=== PATIENT | male | born 1945 | race Caucasian/White ===

== ENCOUNTER 2016-09-13 09:51 | Observation (INO) | payer MEDICARE, BC ==
[2016-09-13 10:37] LABS: ABSOLUTE BASOPHILS # (AUTO) 0.1 10^3/uL (0.0-0.2); ABSOLUTE EOSINOPHILS # (AUTO) 0.2 10^3/uL (0.0-0.6); ABSOLUTE MONOCYTES (AUTO) 0.9 10^3/uL (0.1-1.4); BASOPHILS % (AUTO) 0.8 % (0-2); EOSINOPHILS % (AUTO) 2.9 % (0-6); HEMATOCRIT 51.3 % (37.9-51.0); HEMOGLOBIN 17.7 g/dL (13.5-17.0); HGB HCT DIFFERENCE 1.8; LYMPHOCYTES % (AUTO) 12.2 % (13-45); MEAN CORPUSCULAR HEMOGLOBIN 34.3 pg (27.0-33.4); MEAN CORPUSCULAR HGB CONC 34.5 g/dL (32.0-36.0); MEAN CORPUSCULAR VOLUME 100 fl (80-97); MONOCYTES % (AUTO) 10.8 % (3-13); RED BLOOD COUNT 5.15 10^6/uL (4.35-5.55); RED CELL DISTRIBUTION WIDTH 13.5 % (11.5-14.0); SEGMENTED NEUTROPHILS % (AUTO) 73.3 % (42-78); WHITE BLOOD COUNT 8.2 10^3/uL (4.0-10.5)
[2016-09-13 10:40] LABS: PROTHROMBIN TIME 13.2 SEC (11.4-15.4)
[2016-09-13 10:48] LABS: ALANINE AMINOTRANSFERASE 73 U/L (21-72); ALBUMIN 4.8 g/dL (3.5-5.0); ALKALINE PHOSPHATASE 75 U/L (38-126); ANION GAP 12 (5-19); ASPARTATE AMINO TRANSFERASE 52 U/L (17-59); BILIRUBIN,DIRECT 0.4 mg/dL (0.0-0.4); BILIRUBIN,TOTAL 0.6 mg/dL (0.2-1.3); BLOOD UREA NITROGEN 19 mg/dL (7-20); CALCIUM 9.8 mg/dL (8.4-10.2); CARBON DIOXIDE 27 mmol/L (22-30); CHLORIDE 101 mmol/L (98-107); CREATINE KINASE 100 U/L (55-170); CREATININE RESULT 0.87 mg/dL (0.52-1.25); GLUCOSE 119 mg/dL (75-110); POTASSIUM 5.7 mmol/L (3.6-5.0); SODIUM 140.2 mmol/L (137-145)
[2016-09-13 10:54] LABS: ALCOHOL < 10 mg/dL (NONE DETECTED)
[2016-09-13 10:58] LABS: CREATINE KINASE MB 1.94 ng/mL (<4.55); TROPONIN I 0.012 ng/mL
--- NOTE | 2016-09-13 11:11 | ER Document Report ---
ED Dizziness/Weakness - General Mode of Arrival: Medic Information source: Patient - HPI Patient complains to provider of: Weakness Associated symptoms: Other - See above <MEGAN TORRES - Last Filed: 09/13/16 12:34> <HELEN MORENO - Last Filed: 09/13/16 19:17> - General Chief Complaint: Weakness Stated Complaint: GENERALIZED WEAKNESS Time Seen by Provider: 09/13/16 10:26 Notes: Patient is a 71 year old male, with a past medical history including hypertension, who presents to the emergency department complaining of weakness onset this morning. Patient also complains of diaphoresis, shaking, nausea, dizziness, bloating, headache, and excessive belching. Patient states that he is feeling better now but is still nauseated and has a headache. Patient reports he has been weaning off of Metoprolol recently and this morning his blood pressure was 228/124 which is higher than it has been. Patient states he did take a tablet of Metoprolol at 0800 this morning. Patient denies abdominal pain, chest pain and blurry vision. PCP: Dr. Guevara (MEGAN TORRES) - Related Data Allergies/Adverse Reactions: Penicillins Allergy (Mild, Verified 03/27/13 10:08) Home Medications: Current Home Medications Aspirin [Ecotrin 81 mg EC Tablet] 81 mg PO DAILY 09/13/16 [History] Losartan/Hydrochlorothiazide [Hyzaar 100-25 Tablet] 1 each PO DAILY 09/13/16 [ History] Metoprolol Tartrate [Lopressor 100 mg Tablet] 100 mg PO Q12 09/13/16 [History] Past Medical History - General Information source: Patient - Social History Smoking Status: Never Smoker Chew tobacco use (# tins/day): No Frequency of alcohol use: Social Drug Abuse: None Family History: Reviewed & Not Pertinent, Hypertension - Past Medical History Cardiac Medical History: Reports: Hx Hypertension GI Medical History: Reports: Hx Gastroesophageal Reflux Disease Past Surgical History: Reports: Hx Orthopedic Surgery - berny shoulder, Hx Tonsillectomy <MEGAN TORRES - Last Filed: 09/13/16 12:34> Review of Systems - Review of Systems Constitutional: See HPI, Diaphoresis, Weakness EENT: denies: Blurred vision Cardiovascular: See HPI, Dizziness. denies: Chest pain Respiratory: No symptoms reported Gastrointestinal: See HPI, Nausea, Other - bloating and belching. denies: Abdominal pain Genitourinary: No symptoms reported Male Genitourinary: No symptoms reported Musculoskeletal: No symptoms reported Skin: No symptoms reported Hematologic/Lymphatic: No symptoms reported Neurological/Psychological: See HPI, Headaches, Tremor -: Yes All other systems reviewed and negative <MEGAN TORRES - Last Filed: 09/13/16 12:34> Physical Exam - Vital signs Interpretation: Hypertensive - General General appearance: Appears well, Alert - HEENT Head: Normocephalic, Atraumatic - Respiratory Respiratory status: No respiratory distress Chest status: Nontender Breath sounds: Normal Chest palpation: Normal - Cardiovascular Rhythm: Regular Heart sounds: Normal auscultation Murmur: No - Abdominal Distension: Distended Bowel sounds: Normal Tenderness: Nontender Organomegaly: No organomegaly - Extremities General upper extremity: Normal inspection General lower extremity: Normal inspection - Neurological Neuro grossly intact: Yes Cognition: Normal Orientation: AAOx4 [place] Coma Scale Eye Opening: Spontaneous [place] Coma Scale Verbal: Oriented [place] Coma Scale Motor: Obeys Commands [place] Coma Scale Total: 15 Speech: Normal - Psychological Associated symptoms: Normal affect, Normal mood - Skin Skin Temperature: Warm Skin Moisture: Dry Skin Color: Normal <MEGAN TORRES - Last Filed: 09/13/16 12:34> - Vital signs Interpretation: Normal - General General appearance: Appears well, Alert - HEENT Head: Normocephalic, Atraumatic Eyes: Normal Pupils: PERRL - Respiratory Respiratory status: No respiratory distress Chest status: Nontender Breath sounds: Normal Chest palpation: Normal - Cardiovascular Rhythm: Regular Heart sounds: Normal auscultation Murmur: No - Abdominal Inspection: Normal Distension: No distension Bowel sounds: Normal Tenderness: Nontender Organomegaly: No organomegaly - Back Back: Normal, Nontender - Extremities General upper extremity: Normal inspection, Nontender, Normal color, Normal ROM , Normal temperature General lower extremity: Normal inspection, Nontender, Normal color, Normal ROM , Normal temperature, Normal weight bearing. No: Nichol's sign - Neurological Neuro grossly intact: Yes Cognition: Normal Orientation: AAOx4 [place] Coma Scale Eye Opening: Spontaneous [place] Coma Scale Verbal: Oriented [place] Coma Scale Motor: Obeys Commands [place] Coma Scale Total: 15 Speech: Normal Motor strength normal: LUE, RUE, LLE, RLE Sensory: Normal - Psychological Associated symptoms: Normal affect, Normal mood - Skin Skin Temperature: Warm Skin Moisture: Dry Skin Color: Normal <HELEN MORENO - Last Filed: 09/13/16 19:17> - Vital signs Vitals: Resp Pulse Ox 16 95 09/13/16 10:05 09/13/16 10:05 Course - Laboratory Result Diagrams: 09/13/16 10:00 09/13/16 10:00 - Consults Dr. Han Time consulted: 12:13 - TOld to admit to [facility] Dr. Villar Time consulted: 12:19 <MEGAN TORRES - Last Filed: 09/13/16 12:34> - Laboratory Result Diagrams: 09/13/16 10:00 09/13/16 15:09 <HELEN MORENO - Last Filed: 09/13/16 19:17> - Re-evaluation Re-evalutation: 09/13/16 Patient is a 71-year-old male who comes in with vague complaints including diaphoresis, nausea. Patient was hypertensive here in the emergency department. He is taking metoprolol at home. Patient required IV hydralazine. He was still not feeling well and was admitted to the hospitalist service for further evaluation. Stable at time of admission. Understands and agrees with plan. (HELEN MORENO) - Vital Signs Vital signs: Temp Pulse Resp BP Pulse Ox 98.1 F 10 L 147/91 H 94 09/13/16 16:45 09/13/16 16:30 09/13/16 16:30 09/13/16 16:30 - Laboratory Laboratory results interpreted by me: 09/13/16 09/13/16 09/13/16 10:00 10:00 10:50 Hgb 17.7 H Hct 51.3 H MCV 100 H MCH 34.3 H Lymphocytes % 12.2 L Potassium 5.7 H Glucose 119 H POC Glucose ALT 73 H Urine Protein 30 H Urine Ascorbic Acid 20 H 09/13/16 11:07 Hgb Hct MCV MCH Lymphocytes % Potassium Glucose POC Glucose 126 H ALT Urine Protein Urine Ascorbic Acid - Consults Dr. Villar Reason for consultation: 09/13/16 12:19 Attempting contacting [facility] and her phone is not working 09/13/16 12:36 Will accept patient (MEGAN TORRES) Discharge <MEGAN TORRES - Last Filed: 09/13/16 12:34> - Discharge Admitting Provider: Hospitalist - [facility] Unit Admitted: Telemetry <HELEN MORENO - Last Filed: 09/13/16 19:17> - Discharge Clinical Impression: Weakness, Hypertensive urgency Condition: Stable Disposition: HOME, SELF-CARE Scribe Attestation: 09/13/16 19:17 I personally performed the services described in the documentation, reviewed and edited the documentation which was dictated to the scribe in my presence, and it accurately records my words and actions. (HELEN MORENO) Scribe Documentation - Scribe Written by Scrimane:: tee Hernandez, 09/16/16, 1119 acting as scribe for :: Yadira <MEGAN TORRES - Last Filed: 09/13/16 12:34>
[2016-09-13 11:18] LABS: APPEARANCE,URINE CLEAR; BILIRUBIN,URINE NEGATIVE (NEGATIVE); GLUCOSE, URINE NEGATIVE (NEGATIVE); KETONES,URINE NEGATIVE (NEGATIVE); LEUKOCYTE ESTERASE,URINE NEGATIVE (NEGATIVE); NITRITE,URINE NEGATIVE (NEGATIVE); PROTEIN,URINE 30 mg/dL (NEGATIVE); URINE SPECIFIC GRAVITY 1.011; UROBILINOGEN,URINE NEGATIVE mg/dL (<2.0)
--- NOTE | 2016-09-13 11:32 | RADIOLOGY REPORT (SQ) ---
EXAM DESCRIPTION: CHEST PA/LAT COMPLETED DATE/TIME: 09/13/2016 11:21 am REASON FOR STUDY: AMS COMPARISON: None. EXAM PARAMETERS: NUMBER OF VIEWS: two views TECHNIQUE: Digital Frontal and Lateral radiographic views of the chest acquired. RADIATION DOSE: NA LIMITATIONS: none FINDINGS: LUNGS AND PLEURA: No opacities, masses or pneumothorax. No pleural effusion. MEDIASTINUM AND HILAR STRUCTURES: No masses or contour abnormalities. HEART AND VASCULAR STRUCTURES: Heart normal size. No evidence for failure. BONES: No acute findings. HARDWARE: None in the chest. OTHER: No other significant finding. IMPRESSION: NO SIGNIFICANT RADIOGRAPHIC FINDING IN THE CHEST. TECHNICAL DOCUMENTATION: JOB ID: [id number] [employer]- All Rights Reserved
[2016-09-13] MEDS ORDERED: ONDANSETRON HCL INJ/PF 4 MG/2 ML SDV IV ONE (11:52)
--- NOTE | 2016-09-13 12:23 | RADIOLOGY REPORT (SQ) ---
EXAM DESCRIPTION: KUB/ABDOMEN (SINGLE VIEW) COMPLETED DATE/TIME: 09/13/2016 11:44 am REASON FOR STUDY: distension COMPARISON: None. NUMBER OF VIEWS: One view. TECHNIQUE: Supine radiographic image of the abdomen acquired. LIMITATIONS: None. FINDINGS: BOWEL GAS PATTERN: There is some mild gaseous distension of colon. No dilated small bowel loops are identified. CALCIFICATIONS: No suspicious calcifications. SOFT TISSUES: No gross mass or suggestion of organomegaly. HARDWARE: None in the abdomen. BONES: No acute fracture. No worrisome bone lesions. OTHER: No other significant finding. IMPRESSION: There is some mild gas distention of colon. No dilated small bowel loops are identified . Other findings as noted above TECHNICAL DOCUMENTATION: JOB ID: [id number] [employer]- All Rights Reserved
[2016-09-13] MEDS ORDERED: HYDRALAZINE HCL INJ/PF 20 MG/1 ML SDV IV ONE (12:34)
[2016-09-13] MEDS ORDERED: ONDANSETRON HCL INJ/PF 4 MG/2 ML SDV IV PRN (13:14)
[2016-09-13] MEDS ORDERED: ACETAMINOPHEN 325 MG TABLET PO PRN (13:14)
[2016-09-13] MEDS ORDERED: ZOLPIDEM TARTRATE 5 MG TABLET PO PRN (13:14)
[2016-09-13] MEDS ORDERED: DEXTROSE 50%-WATER 25 GM/50 ML DISP.SYRIN IV ONE (13:21)
[2016-09-13] MEDS ORDERED: INSULIN REG, HUMAN 100 UNIT/ML 3 ML VIAL (PYX) IV ONE (13:21)
[2016-09-13] MEDS ORDERED: HYDRALAZINE HCL INJ/PF 20 MG/1 ML SDV IV PRN (13:24)
[2016-09-13] MEDS ORDERED: METOPROLOL TARTRATE 50 MG TABLET PO ONE (14:00)
--- NOTE | 2016-09-13 15:30 | PDOC H&P ---
History of Present Illness Admission Date/PCP: 09/13/16 13:14 NATIVIDAD DUENAS MD Patient complains of: Generalized weakness , elevated blood pressure and nausea History of Present Illness: JASMINE HUMPHREY is a 71 year old male, with a past medical history including hypertension, who presents to the emergency department complaining of weakness onset this morning. Patient also complains of diaphoresis, shaking, nausea, dizziness, bloating, headache, and excessive belching. Patient states that he is feeling better now but is still nauseated and has a headache. Patient reports he has been weaning off of Metoprolol recently and this morning his blood pressure was 228/124 which is higher than it has been. Patient states he did take a tablet of Metoprolol at 0800 this morning. Patient denies abdominal pain, chest pain and blurry vision. He presented to his primary care providers office, Dr. Mateus Morgan. Who referred him to the ED for further evaluation. Past Medical History Cardiac Medical History: Reports: Hyperlipidema, Hypertension Pulmonary Medical History: Reports: None EENT Medical History: Reports: None Neurological Medical History: Reports: None Endocrine Medical History: Reports: None Renal/ Medical History: Reports: None Malignancy Medical History: Reports: None GI Medical History: Reports: Gastroesophageal Reflux Disease, Other - Godinez's esophagus Musculoskeltal Medical History: Reports: None Skin Medical History: Reports: None Psychiatric Medical History: Reports: Depression Traumatic Medical History: Reports: None Hematology: Reports: None Infectious Medical History: Reports: None Past Surgical History Past Surgical History: Reports: Orthopedic Surgery - berny shoulder, Tonsillectomy Social History Information Source: Patient Lives with: Spouse/Significant other Smoking Status: Never Smoker Frequency of Alcohol Use: Social - daily 2-3 cocktails Hx Recreational Drug Use: No Drugs: None Hx Prescription Drug Abuse: No - Advance Directive Resuscitation Status: Full Code Surrogate healthcare decision maker:: , Jyoti Family History Family History: Hypertension Parental Family History Reviewed: Yes Children Family History Reviewed: Yes Sibling(s) Family History Reviewed.: Yes Medication/Allergy Home Medications: Aspirin [Ecotrin 81 mg EC Tablet] 81 mg PO DAILY 09/13/16 Losartan/Hydrochlorothiazide [Hyzaar 100-25 Tablet] 1 each PO DAILY 09/13/16 Metoprolol Tartrate [Lopressor 100 mg Tablet] 100 mg PO Q12 09/13/16 Allergies/Adverse Reactions: Penicillins Allergy (Mild, Verified 03/27/13 10:08) Review of Systems Constitutional: PRESENT: weakness Eyes: ABSENT: visual disturbances Ears: ABSENT: hearing changes Cardiovascular: ABSENT: chest pain, dyspnea on exertion, edema, orthropnea, palpitations Respiratory: ABSENT: cough, hemoptysis Gastrointestinal: PRESENT: abdominal pain, heartburn, nausea Genitourinary: ABSENT: dysuria, hematuria Musculoskeletal: ABSENT: joint swelling Integumentary: PRESENT: as per HPI Neurological: ABSENT: abnormal gait, abnormal speech, confusion, dizziness, focal weakness, syncope Psychiatric: PRESENT: depression. ABSENT: anxiety, homidical ideation, suicidal ideation Endocrine: ABSENT: cold intolerance, heat intolerance, polydipsia, polyuria Hematologic/Lymphatic: ABSENT: easy bleeding, easy bruising Physical Exam Vital Signs: Temp Pulse Resp BP Pulse Ox 16 159/86 H 92 09/13/16 14:01 09/13/16 14:01 09/13/16 14:01 General appearance: PRESENT: no acute distress, obese, well-developed, well- nourished Head exam: PRESENT: atraumatic, normocephalic Eye exam: PRESENT: conjunctiva pink, EOMI, PERRLA. ABSENT: scleral icterus Ear exam: PRESENT: normal external ear exam Mouth exam: PRESENT: moist, tongue midline Neck exam: ABSENT: carotid bruit, JVD, lymphadenopathy, thyromegaly Respiratory exam: PRESENT: clear to auscultation berny. ABSENT: rales, rhonchi, wheezes Cardiovascular exam: PRESENT: RRR. ABSENT: diastolic murmur, rubs, systolic murmur Pulses: PRESENT: normal dorsalis pedis pul Vascular exam: PRESENT: normal capillary refill GI/Abdominal exam: PRESENT: normal bowel sounds, soft. ABSENT: distended, guarding, mass, organolmegaly, rebound, tenderness Rectal exam: PRESENT: deferred Extremities exam: PRESENT: full ROM. ABSENT: calf tenderness, clubbing, pedal edema Neurological exam: PRESENT: alert, awake, oriented to person, oriented to place , oriented to time, oriented to situation, CN II-XII grossly intact. ABSENT: motor sensory deficit Psychiatric exam: PRESENT: appropriate affect, normal mood. ABSENT: homicidal ideation, suicidal ideation Skin exam: PRESENT: dry, intact, warm. ABSENT: cyanosis, rash Results Impressions: Chest X-Ray 09/13/16 10:27 IMPRESSION: NO SIGNIFICANT RADIOGRAPHIC FINDING IN THE CHEST. KUB X-Ray 09/13/16 11:25 IMPRESSION: There is some mild gas distention of colon. No dilated small bowel loops are identified. Other findings as noted above Assessment & Plan - Diagnosis (1) Hypertensive urgency Is this a current diagnosis for this admission?: YesPlan: Patient was given 1 dose of IV hydralazine 10 mg by the ER provider. He was given 50 of metoprolol. He states he did take half a metoprolol this morning. Blood pressure on admission was 192/107. Now 138/86. His headache, nausea and belching has resolved (2) Hyperkalemia Is this a current diagnosis for this admission?: YesPlan: Patient's potassium was 5.7. He was given 10 units of regular insulin IV, followed by 25 g IV. Repeat potassium in 2 hours. (3) Epigastric abdominal pain Is this a current diagnosis for this admission?: YesPlan: Patient does have a history of GERD and Godinez's esophagus KUB showed gas filled distention of the colon, no signs of obstruction. (4) GERD (gastroesophageal reflux disease) Qualifiers: Esophagitis presence: esophagitis presence not specified Qualified Code(s): K21.9 - Gastro-esophageal reflux disease without esophagitis Is this a current diagnosis for this admission?: YesPlan: Patient history of GERD on PPI therapy states he has an upcoming evaluation at [facility]. He also has history of mild Esophageal dysplasia. (5) Dyslipidemia Is this a current diagnosis for this admission?: YesPlan: Continue statin - Time Time Spent: 50 to 70 Minutes Critical Time spent with patient: 25-34 minutes Medications reviewed and adjusted accordingly: Yes Anticipated discharge: Home Within: within 24 hours
--- NOTE | 2016-09-13 16:58 | PDOC DISCHARGE SUMMARY ---
General - Admit/Disc Date/PCP Admission Date/Primary Care Provider: 09/13/16 13:14 NATIVIDAD DUENAS MD Discharge Date: 09/13/16 - Discharge Diagnosis (1) Hypertensive urgency Is this a current diagnosis for this admission?: YesSummary: Resolved with one dose IV hydralazine and additional lopressor 50 mg po x 1. Resume home medications. Resume metoprolol to 100 mg bid and follow up with Dr Morgan (2) Hyperkalemia Is this a current diagnosis for this admission?: YesSummary: Resolved, patient has been increasing potassium intake due to HCTZ he takes. (3) Epigastric abdominal pain Is this a current diagnosis for this admission?: YesSummary: Resolved. KUB showed colonic distension, no obstruction (4) GERD (gastroesophageal reflux disease) Is this a current diagnosis for this admission?: YesSummary: Continue omeprazole and follow up with GI (5) Dyslipidemia Is this a current diagnosis for this admission?: Yes - Additional Information Resuscitation Status: Full Code Discharge Diet: Other (Comments) - low sodium Discharge Activity: Activity As Tolerated, Balance Activity w/Rest Home Medications: Aspirin [Ecotrin 81 mg EC Tablet] 81 mg PO DAILY 09/13/16 Losartan/Hydrochlorothiazide [Hyzaar 100-25 Tablet] 1 each PO DAILY 09/13/16 Metoprolol Tartrate [Lopressor 100 mg Tablet] 100 mg PO Q12 09/13/16 History of Present Illness Patient complains of: Epigastric pain and elevated blood pressure History of Present Illness: JASMINE HUMPHREY is a 71 year old male, with a past medical history including hypertension, who presents to the emergency department complaining of weakness onset this morning. Patient also complains of diaphoresis, shaking, nausea, dizziness, bloating, headache, and excessive belching. Patient states that he is feeling better now but is still nauseated and has a headache. Patient reports he has been weaning off of Metoprolol recently and this morning his blood pressure was 228/124 which is higher than it has been. Patient states he did take a tablet of Metoprolol at 0800 this morning. Patient denies abdominal pain, chest pain and blurry vision. He presented to his primary care providers office, Dr. Mateus Morgan. Who referred him to the ED for further evaluation. Hospital Course Hospital Course: Patient was referred to hospitalist service by ED provider for observation admission for hypertensive urgency , hyperkalemia with normal BUN/Cr and epigastric pain. His blood pressure was 196/97 on admission. He had been given one dose of IV hydralazine by ED provider with improvement of his BP to 150/90. Epigastric pain resolved with zofran. ECG showed no ST or T wave changes indicative of ischemia. Patient reports 2 negative stress tests in the past, none in the last 2 years. He had 2 sets of negative troponins and resolution of all symptoms. He was given insulin/D50 for potassium of 5.7. This resolved to 4.1. Patient was quite insistent that he wanted to go home. We suggested follow up with a cardiac stress test to rule out any cardiac involvement. He states he will discuss this with his physician. He will resume his normal dose of metoprolol and monitor blood pressure at home. We discussed stress reduction, increasing cardiovascular exercise and losing weight to decrease risk factor reduction. He was instructed to return to ED if his symptoms were to reoccur. Physical Exam Vital Signs: Temp Pulse Resp BP Pulse Ox 15 151/90 H 93 09/13/16 15:30 09/13/16 15:30 09/13/16 15:30 General appearance: PRESENT: no acute distress, obese, well-developed, well- nourished Head exam: PRESENT: atraumatic Eye exam: PRESENT: conjunctiva pink, EOMI, PERRLA. ABSENT: scleral icterus Ear exam: PRESENT: normal external ear exam Mouth exam: PRESENT: moist, tongue midline Neck exam: ABSENT: carotid bruit, JVD, lymphadenopathy, thyromegaly Respiratory exam: PRESENT: clear to auscultation berny. ABSENT: rales, rhonchi, wheezes Cardiovascular exam: PRESENT: RRR. ABSENT: diastolic murmur, rubs, systolic murmur Vascular exam: PRESENT: normal capillary refill GI/Abdominal exam: PRESENT: normal bowel sounds, soft. ABSENT: distended, guarding, mass, organolmegaly, rebound, tenderness Rectal exam: PRESENT: deferred Extremities exam: PRESENT: full ROM. ABSENT: calf tenderness, clubbing, pedal edema Neurological exam: PRESENT: alert, awake, oriented to person, oriented to place , oriented to time, oriented to situation, CN II-XII grossly intact. ABSENT: motor sensory deficit Psychiatric exam: PRESENT: appropriate affect, normal mood. ABSENT: homicidal ideation, suicidal ideation Skin exam: PRESENT: dry, intact, warm. ABSENT: cyanosis, rash Results Laboratory Results: 09/13/16 15:09 09/13/16 15:09 Potassium 4.1 D 09/13/16 15:09 Troponin I 0.017 Impressions: Chest X-Ray 09/13/16 10:27 IMPRESSION: NO SIGNIFICANT RADIOGRAPHIC FINDING IN THE CHEST. KUB X-Ray 09/13/16 11:25 IMPRESSION: There is some mild gas distention of colon. No dilated small bowel loops are identified. Other findings as noted above Qualifiers PATEINT BEING DISCHARGED WITH ANY OF THE FOLLOWING DIAGNOSIS?: No Plan Discharge Plan: Home with Time Spent: Less than 30 Minutes
[2016-09-13] MEDS ORDERED: LANSOPRAZOLE 30 MG TAB.RAP.DR PO SCH (17:00)
[2016-09-13 17:01] VITALS: BP 147/91
--- NOTE | 2016-09-13 17:49 | EKG REPORT ---
SEVERITY:- ABNORMAL ECG - SINUS RHYTHM BORDERLINE LEFT AXIS DEVIATION NONSPECIFIC T ABNORMALITIES, INFERIOR LEADS : Confirmed by: Kelvin Gallegos 13-Sep-2016 17:48:28
[2016-09-13] MEDS ORDERED: METOPROLOL TARTRATE 100 MG TABLET PO SCH (22:00)
== END 2016-09-13 17:02 | disposition home or self-care (01) ==
LOC: ER 09:51 → EH 13:14
PROVIDERS: ADMIT Family Medicine; ATTEND Family Medicine
DX: I16.0 Hypertensive urgency (principal); E87.5 Hyperkalemia; R10.13 Epigastric pain; K63.89 Other specified diseases of intestine; K21.9 Gastro-esophageal reflux disease without esophagitis; E78.5 Hyperlipidemia, unspecified; R14.2 Eructation; K22.70 Barrett's esophagus without dysplasia; F32.9 Major depressive disorder, single episode, unspecified; R25.1 Tremor, unspecified; Z79.899 Other long term (current) drug therapy; Z79.82 Long term (current) use of aspirin; Z82.49 Family history of ischemic heart disease and other diseases of the circulatory system
CPT/HCPCS: 93005; 99285; 96374; 96375; 36415; 87040; 87086; 82553; 82962; 80307; 82550; 84132; 84443; 85025; 85610; 87077; 80053; 81001; 84484; 87186; 83605; 71020; 74000; 93010; J3490; J0360; A9270 ×2; J2405; G0378; J1815